=== PATIENT | female | born 1940 | race Caucasian/White ===

== ENCOUNTER 2017-11-16 14:28 | Inpatient (IN) | payer OTHER ==
[~2017-11-16] VITALS: Ht 160 cm; Wt 96.8 kg
[2017-11-16 15:59] VITALS: BP 147/85
[2017-11-16 16:06] LABS: BASOPHIL (%) 0.5 % (0-1); BASOPHIL COUNT 0.1 K/uL (0-0.1); EOSINOPHIL (%) 0.3 % (0-5); HEMATOCRIT 42.9 % (36.0-46.0); HEMOGLOBIN 13.6 G/DL (11.9-15.5); IMMATURE GRANULOCYTE (%) 0.4 % (0.0-0.7); LYMPHOCYTE (%) 10.9 % (15-42); MCH 27.8 PG (29.0-34.0); MCHC 31.7 G/DL (30.0-36.0); MCV 87.7 FL (83-99); MONOCYTE (%) 9.7 % (3-12); MONOCYTE COUNT 0.9 K/uL (0-0.8); NEUTROPHIL (%) 78.2 % (45-76); NEUTROPHIL COUNT 7.3 K/uL (1.8-6.4); PLATELET COUNT 417 K/uL (156-360); RBC DIS.WIDTH-CV 15.7 % (11.8-14.6); RBC DIS.WIDTH-SD 50.5 % (39-53); RED BLOOD COUNT 4.89 M/uL (3.80-5.20); WHITE BLOOD COUNT 9.4 K/uL (4.1-10.2)
[2017-11-16 16:29] LABS: ALKALINE PHOSPHATASE 87 IU/L (3-129); ALT (GPT) 14 IU/L (3-49); AST (GOT) 24 IU/L (2-34); CHLORIDE 101 MEQ/L (99-109); CREATININE 1.2 MG/DL (0.6-1.3); GFR ESTIMATE (CALCULATED) 47 mL/min/; GLUCOSE 93 mg/dL (70-99); POTASSIUM 3.8 MEQ/L (3.7-5.4); SODIUM 135 MEQ/L (136-147); TOTAL BILIRUBIN 0.5 MG/DL (0.0-1.0); TOTAL PROTEIN 7.2 G/DL (6.4-8.3); UREA NITROGEN (BUN) 15 mg/dL (9-23)
[2017-11-16 18:18] LABS: INTER. NORMALIZED RATIO 1.2
[2017-11-16 18:21] LABS: PTT 27.5 SEC (25-37)
[2017-11-16 19:46] LABS: TYPE OF FLUID PARACENTESIS
[2017-11-16 20:18] LABS: BODY FLUID PROTEIN 5.1 G/DL
[2017-11-16 21:19] LABS: APPEARANCE YELLOW-CLEAR; BODY FLUID EOSINOPHILS 0 % (0-25); BODY FLUID RBC'S 1000 /MM^3 (0-100); BODY FLUID WBC'S 530 /MM^3 (0-500); MONONUCLEAR WBC'S 100 %; POLYNUCLEAR WBC'S 0 % (0-25)
[2017-11-17 00:54] VITALS: BP 139/74
[2017-11-17 06:26] LABS: INTER. NORMALIZED RATIO 1.2
[2017-11-17 06:29] LABS: PTT 27.7 SEC (25-37)
[2017-11-17 07:06] VITALS: BP 130/71
[2017-11-17 15:22] VITALS: BP 131/66
[2017-11-17 23:02] VITALS: BP 133/67
[2017-11-18 05:57] LABS: BASOPHIL (%) 1.1 % (0-1); BASOPHIL COUNT 0.1 K/uL (0-0.1); EOSINOPHIL (%) 2.1 % (0-5); EOSINOPHIL COUNT 0.1 K/uL (0-0.3); HEMATOCRIT 39.7 % (36.0-46.0); HEMOGLOBIN 12.8 G/DL (11.9-15.5); IMMATURE GRANULOCYTE (%) 0.6 % (0.0-0.7); LYMPHOCYTE (%) 16.8 % (15-42); LYMPHOCYTE COUNT 1.1 K/uL (1.0-2.8); MCH 28.4 PG (29.0-34.0); MCHC 32.2 G/DL (30.0-36.0); MCV 88.2 FL (83-99); MONOCYTE (%) 11.2 % (3-12); MONOCYTE COUNT 0.7 K/uL (0-0.8); NEUTROPHIL (%) 68.2 % (45-76); NEUTROPHIL COUNT 4.3 K/uL (1.8-6.4); PLATELET COUNT 333 K/uL (156-360); RBC DIS.WIDTH-CV 15.6 % (11.8-14.6); RBC DIS.WIDTH-SD 50.3 % (39-53); WHITE BLOOD COUNT 6.3 K/uL (4.1-10.2)
[2017-11-18 06:29] LABS: CHLORIDE 104 MEQ/L (99-109); CREATININE 0.9 MG/DL (0.6-1.3); GFR ESTIMATE (CALCULATED) > 59 mL/min/; GLUCOSE 114 mg/dL (70-99); SODIUM 137 MEQ/L (136-147); UREA NITROGEN (BUN) 9 mg/dL (9-23)
[2017-11-18 07:43] VITALS: BP 126/71
[2017-11-18 09:40] VITALS: BP 136/77
[2017-11-18 09:42] LABS: CARCINOEMBR.ANTIGEN 0.9 NG/ML
[2017-11-18 13:00] VITALS: BP 137/71
[2017-11-18] MEDS ORDERED: ZOCOR20 MG PO (13:58)
[2017-11-18] MEDS ORDERED: LEVOTHYROXINE100 MCG PO (13:58)
[2017-11-18] MEDS ORDERED: MONTELUKAST SOD10 MG PO (13:59)
[2017-11-18 15:25] VITALS: BP 131/70
[2017-11-18 23:27] VITALS: BP 131/68
[2017-11-19 06:44] LABS: BASOPHIL (%) 0.5 % (0-1); EOSINOPHIL COUNT 0.1 K/uL (0-0.3); HEMATOCRIT 40.4 % (36.0-46.0); HEMOGLOBIN 12.7 G/DL (11.9-15.5); IMMATURE GRANULOCYTE (%) 0.6 % (0.0-0.7); LYMPHOCYTE (%) 11.6 % (15-42); LYMPHOCYTE COUNT 0.8 K/uL (1.0-2.8); MCH 27.7 PG (29.0-34.0); MCHC 31.4 G/DL (30.0-36.0); MCV 88.2 FL (83-99); MONOCYTE (%) 10.1 % (3-12); MONOCYTE COUNT 0.7 K/uL (0-0.8); NEUTROPHIL (%) 75.2 % (45-76); NEUTROPHIL COUNT 4.8 K/uL (1.8-6.4); PLATELET COUNT 343 K/uL (156-360); RBC DIS.WIDTH-CV 15.6 % (11.8-14.6); RBC DIS.WIDTH-SD 50.3 % (39-53); RED BLOOD COUNT 4.58 M/uL (3.80-5.20); WHITE BLOOD COUNT 6.4 K/uL (4.1-10.2)
[2017-11-19 06:50] VITALS: BP 120/66
[2017-11-19 07:05] LABS: CHLORIDE 105 MEQ/L (99-109); CREATININE 0.8 MG/DL (0.6-1.3); GFR ESTIMATE (CALCULATED) > 59 mL/min/; GLUCOSE 115 mg/dL (70-99); POTASSIUM 3.7 MEQ/L (3.7-5.4); SODIUM 139 MEQ/L (136-147); UREA NITROGEN (BUN) 6 mg/dL (9-23)
[2017-11-19] MEDS ORDERED: CIPROFLOXACIN500 M1 PO (09:40)
[2017-11-19] MEDS ORDERED: SUCRALFATE1 GM/10 ML PO (09:40)
[2017-11-19] MEDS ORDERED: PANTOPRAZOLE SO40 MG PO (09:40)
[2017-11-19] MEDS ORDERED: ACETAMINOPHEN-1 EAC1 PO (09:40)
== END 2017-11-19 13:41 | disposition home or self-care (01) | DRG 374 ==
LOC: 5EAST 14:28
PROVIDERS: Hospitalist; Internal Medicine; Internal Medicine Gastroenterology
PROC: 0W9G3ZZ Drainage of Peritoneal Cavity, Percutaneous Approach (ICD-10-PCS; principal; 2017-11-16)
PROC: 0DJ08ZZ Inspection of Upper Intestinal Tract, Via Natural or Artificial Opening Endoscopic (ICD-10-PCS; 2017-11-17)
DX: C78.6 Secondary malignant neoplasm of retroperitoneum and peritoneum (principal); K65.2 Spontaneous bacterial peritonitis; R13.10 Dysphagia, unspecified; C18.9 Malignant neoplasm of colon, unspecified; E03.9 Hypothyroidism, unspecified; R18.8 Other ascites; E78.5 Hyperlipidemia, unspecified; J45.909 Unspecified asthma, uncomplicated; Z87.891 Personal history of nicotine dependence; E66.01 Morbid (severe) obesity due to excess calories; E05.90 Thyrotoxicosis, unspecified without thyrotoxic crisis or storm; K21.9 Gastro-esophageal reflux disease without esophagitis; Z68.37 Body mass index [BMI] 37.0-37.9, adult; R18.0 Malignant ascites; Z66 Do not resuscitate; K22.10 Ulcer of esophagus without bleeding; K44.9 Diaphragmatic hernia without obstruction or gangrene; K31.7 Polyp of stomach and duodenum; Z87.440 Personal history of urinary (tract) infections; K62.89 Other specified diseases of anus and rectum; R63.3 Feeding difficulties
CPT/HCPCS: 36415; 49083; 77012; 80048; 80053; 82378; 82945; 83615 91; 83880 GA; 83986 90; 84157; 85025; 85610; 85730; 86304; 87070; 87205; 88108; 88305; 88341 TC; 88342 TC; 89051; C9113; J0696; J1650; J3010

== ENCOUNTER → 2017-11-25 | Outpatient (CLI) | payer OTHER ==
[~2017-11-25] MED LIST: ACETAMINOPHEN-1 EAC1 PO; CIPROFLOXACIN500 M1 PO; LEVOTHYROXINE100 MCG PO; MONTELUKAST SOD10 MG PO; PANTOPRAZOLE SO40 MG PO; SUCRALFATE1 GM/10 ML PO; ZOCOR20 MG PO
== END | disposition home or self-care (01) ==
LOC: RAD 09:33
PROC: 0W9G3ZZ Drainage of Peritoneal Cavity, Percutaneous Approach (ICD-10-PCS; principal; 2017-11-25)
DX: R18.8 Other ascites (principal); C48.2 Malignant neoplasm of peritoneum, unspecified
CPT/HCPCS: 49083

== ENCOUNTER 2017-12-05 12:00 | Emergency (ER) | payer OTHER ==
[~2017-12-05] VITALS: Ht 157.5 cm; Wt 85.7 kg
[2017-12-05 13:19] LABS: HEMATOCRIT 42.6 % (36.0-46.0); HEMOGLOBIN 14.3 G/DL (11.9-15.5); MCH 28.7 PG (29.0-34.0); MCHC 33.6 G/DL (30.0-36.0); MCV 85.4 FL (83-99); PLATELET COUNT 296 K/uL (156-360); RBC DIS.WIDTH-CV 15.4 % (11.8-14.6); RED BLOOD COUNT 4.99 M/uL (3.80-5.20); WHITE BLOOD COUNT 1.4 K/uL (4.1-10.2)
[2017-12-05 13:22] LABS: CHLORIDE 102 mEq/L (99-109); POTASSIUM 4.3 mEq/L (3.7-5.4); SODIUM 134 mEq/L (136-147)
[2017-12-05 13:24] LABS: GLUCOSE 142 mg/dL (70-99)
[2017-12-05 13:29] LABS: GFR ESTIMATE (CALCULATED) 57 mL/min/; UREA NITROGEN (BUN) 12 mg/dL (9-23)
[2017-12-05 13:33] LABS: ALBUMIN 3.8 g/dL (3.2-4.8)
[2017-12-05 13:36] LABS: TOTAL PROTEIN 7.3 g/dL (6.4-8.3)
[2017-12-05 13:38] LABS: TOTAL BILIRUBIN 0.6 mg/dL (0.0-1.0)
[2017-12-05 13:39] LABS: ALKALINE PHOSPHATASE 94 IU/L (3-129)
[2017-12-05 13:41] LABS: AST (GOT) 26 IU/L (2-34)
[2017-12-05 13:42] LABS: ALT (GPT) 18 IU/L (3-49); DIRECT BILIRUBIN 0.2 mg/dL (0.0-0.3)
[2017-12-05 13:43] LABS: LIPASE 22 U/L (1.0-51.0)
[2017-12-05 13:53] LABS: APPEARANCE SL.HAZY ((CLEAR)); BILIRUBIN NEGATIVE; BLOOD NEGATIVE; COLOR YELLOW ((YELLOW)); GLUCOSE (STRIP) NEGATIVE; KETONES 5; LEUKOCYTES TRACE; NITRITE NEGATIVE; PROTEIN (STRIP) 30; SPECIFIC GRAVITY 1.018 (1.000-1.030); UROBILINOGEN 0.2 MG/DL (0.2-1.0)
[2017-12-05 13:56] LABS: BACTERIA RARE /HPF; EPITHELIAL CELLS 1+ /HPF; MUCUS 1+ /LPF; RED BLOOD CELLS 0-5 /HPF (0-5); UCUL ADDED? NO; WHITE BLOOD CELLS 0-5 /HPF (0-5)
[2017-12-05] MEDS ORDERED: PHENERGAN25 MG PR (14:21)
[2017-12-05] MEDS ORDERED: ZOFRAN ODT4 MG PO (14:21)
[2017-12-05 14:39] VITALS: BP 133/96
[2017-12-05 15:07] LABS: ABS NEUTROPHIL COUNT 0.8; ATYPICAL LYMPHOCYTE 6.1 %; BAND NEUTROPHILS 16.5 % (0-8.0); EOSINOPHIL ABS CT 0; EOSINOPHILS 1.7 % (0-5.0); LYMPHOCYTES 31.3 % (15.0-45.0); MONOCYTES 4.4 % (0-9.0)
== END 2017-12-05 14:40 | disposition home or self-care (01) ==
LOC: EME 12:00
DX: R11.2 Nausea with vomiting, unspecified (principal); D72.819 Decreased white blood cell count, unspecified; C56.9 Malignant neoplasm of unspecified ovary; Z92.21 Personal history of antineoplastic chemotherapy; J45.909 Unspecified asthma, uncomplicated; E78.5 Hyperlipidemia, unspecified; Z87.891 Personal history of nicotine dependence
CPT/HCPCS: 80048; 80076; 81003; 83690; 85025; 85027; 99281; 99284; J2765; J7030

== ENCOUNTER → 2017-12-07 | Outpatient (CLI) | payer OTHER ==
[~2017-12-07] MED LIST changes: +PHENERGAN25 MG PR; +ZOFRAN ODT4 MG PO
== END | disposition home or self-care (01) ==
LOC: RAD 08:27
PROC: 0W9G3ZZ Drainage of Peritoneal Cavity, Percutaneous Approach (ICD-10-PCS; principal; 2017-12-07)
DX: R18.8 Other ascites (principal); C48.2 Malignant neoplasm of peritoneum, unspecified
CPT/HCPCS: 49083